=== PATIENT | female | born 1980 | race Caucasian/White ===

== ENCOUNTER 2018-05-14 20:15 | Emergency (ER) | payer MEDICAID ==
[~2018-05-14] VITALS: Ht 157.5 cm; Wt 59.0 kg
[2018-05-14 20:55] LABS: *BLOOD, URINE 2+ (NEGATIVE); *CLARITY,URINE SLIGHTLY CLOUDY (CLEAR); *COLOR,URINE DARK YELLOW (YELLOW); *KETONES,URINE TRACE (NEGATIVE); LEUKOCYTE ESTERASE ,URINE 3+ (NEGATIVE); NITRITE, URINE POSITIVE (NEGATIVE); PH,URINE 5.5 (5.0-8.0); UGLUCOSE TRACE (NEGATIVE)
[2018-05-14 21:10] LABS: *BILIRUBIN,URIN 1+ (NEGATIVE)
[2018-05-14 21:12] LABS: BACTERIA,URINE MODERATE /HPF (NONE SEEN); SQUAMOUS EPITHELIAL CELL,UR FEW /HPF (NONE SEEN); WBC,URINE 50-80 /HPF (0-3)
[2018-05-14 21:53] LABS: *URINE HCG, QUAL NEGATIVE (NEGATIVE)
[2018-05-14] MEDS ORDERED: CEFTRIAXONE 1 G VIAL ONE (21:53)
[2018-05-14] MEDS ORDERED: KETOROLAC TROMETHAMINE 15 MG INJ ONE (21:53)
[2018-05-14] MEDS: CEFTRIAXONE 1 G in IV DEXTROSE 5% 50 ML IV ONE (22:01)
[2018-05-14] MEDS: KETOROLAC TROMETHAMINE 15 MG INJ IVP ONE (22:02)
--- NOTE | 2018-05-14 23:31 | NUR ---
Patient discharged to home in stable conditon. Written and verbal after care instructions given. Patient verbalizes understanding of instructions.
== END 2018-05-14 23:32 | disposition home or self-care (01) ==
LOC: ER 20:19
DX: N10 Acute pyelonephritis (principal); J40 Bronchitis, not specified as acute or chronic; B97.89 Other viral agents as the cause of diseases classified elsewhere; Z88.0 Allergy status to penicillin
CPT/HCPCS: 76770; 81001; 84703; 87077; 87086; 87186; 96365; 96375; 99284; J0696; J1885; J7060; A4663